=== PATIENT | female | born 1940 | race Caucasian/White ===

== ENCOUNTER 2020-03-16 16:11 | Emergency (ER) | payer OTHER ==
[~2020-03-16] VITALS: Ht 165.1 cm; Wt 93.4 kg
[2020-03-16] MEDS ORDERED: TOPROL XL100 MG PO (16:21)
[2020-03-16] MEDS ORDERED: GLUCOPHAGE XR750 MG PO (16:22)
[2020-03-16] MEDS ORDERED: GLIPIZIDE 10 MG10 MG PO (16:22)
[2020-03-16] MEDS ORDERED: LIPITOR 20 MG T20 M1 PO (16:22)
[2020-03-16] MEDS ORDERED: LISINOPRIL20 MG PO (16:23)
[2020-03-16] MEDS ORDERED: HYDROCHLOROTHIA25 M2 PO (16:24)
[2020-03-16] MEDS ORDERED: HYDROCODON-ACE1 EAC7 PO (18:13)
[2020-03-16] MEDS ORDERED: MELOXICAM15 MG PO (18:13)
[2020-03-16 18:35] VITALS: BP 152/98
== END 2020-03-16 18:35 | disposition home or self-care (01) ==
LOC: M.ERS 16:11
DX: S42.211A Unspecified displaced fracture of surgical neck of right humerus, initial encounter for closed fracture (principal); E11.9 Type 2 diabetes mellitus without complications; E03.9 Hypothyroidism, unspecified; E78.00 Pure hypercholesterolemia, unspecified; I10 Essential (primary) hypertension; W18.39XA Other fall on same level, initial encounter; Y93.89 Activity, other specified; Y92.89 Other specified places as the place of occurrence of the external cause; Y99.8 Other external cause status